=== PATIENT | male | born 1985 | race Caucasian/White ===

== ENCOUNTER 2016-08-02 22:08 | Emergency (ER) | payer SELFPAY ==
[~2016-08-02] VITALS: Ht 167.6 cm; Wt 65.8 kg
[2016-08-02 22:15] VITALS: BP 132/74
[2016-08-02] MEDS ORDERED: levETIRAcetam 500 MG in D5W 110 ML IV ONE (22:30)
[2016-08-02] MEDS ORDERED: levETIRAcetam 500mg vial IV ONE (22:56)
[2016-08-02 23:00] LABS: BASOPHILS % (AUTO) 0.8 % (0.0-2.0); EOSINOPHILS % (AUTO) 1.5 % (0.0-3.0); LYMPHOCYTES % (AUTO) 35.2 % (20.0-45.0); MEAN CORPUSCULAR HEMOGLOBIN 31.3 PG (27.0-31.0); MEAN CORPUSCULAR HGB CONC 35.4 G/DL (32.0-36.0); MEAN CORPUSCULAR VOLUME 88 FL (80-99); MEAN PLATELET VOLUME 8.4 FL (6.5-10.1); MONOCYTES % (AUTO) 7.3 % (1.0-10.0); NEUTROPHILS % (AUTO) 55.2 % (45.0-75.0); PLATELET COUNT 151 K/UL (150-450); RED BLOOD COUNT 4.69 M/UL (4.70-6.10); RED CELL DISTRIBUTION WIDTH 11.8 % (11.6-14.8); WHITE BLOOD COUNT 8.8 K/UL (4.8-10.8)
[2016-08-02 23:23] LABS: ALCOHOL < 10 mg/dL; ANION GAP 14 (5-15); CALCIUM 9.2 mg/dL (8.6-10.2); CARBON DIOXIDE 27 mEQ/L (20-30); CHLORIDE 96 mEQ/L (98-107); CREATININE 1.1 mg/dL (0.7-1.2); GLOMERULAR FILTRATION RATE > 60 mL/min (>60); HEMOLYSIS 7; POTASSIUM 3.5 mEQ/L (3.4-4.9); SODIUM 137 mEQ/L (135-145)
[2016-08-03] MEDS ORDERED: KEPPRA500 M4 ORAL (00:10)
--- NOTE | 2016-08-03 00:10 | Emergency Room Report ---
History of Present Illness General Chief Complaint: General Complaint Source: Patient, Family Member Present Illness HPI Is a 30-year-old transgender male who presents with altered mental status. Per his fianc, he became unresponsive. This lasted for 5 minutes. Afterward he has some twitching. He was confused also. No incontinence of bowel or urine. No laceration. He has similar symptom in the last 6 months but usually lasts only a few minutes. Is usually occur at night. She thought that he may have nightmares. He said that she's had a seizure but he himself never had seizure. Allergies: Coded Allergies: AMOXICILLIN (Verified Allergy, Mild, 08/02/16) Patient History Past Medical History: see triage record, old chart reviewed Past Surgical History: other Pertinent Family History: none Social History: Denies: smoking Immunizations: other Reviewed Nursing Documentation: PMH: Agreed, PSxH: Agreed Nursing Documentation-PMH Past Medical History: No History, Except For Review of Systems Eye: Denies: blurred vision, eye pain ENT: Denies: ear pain, nose congestion, throat swelling Respiratory: Denies: cough, shortness of breath Cardiovascular: Denies: chest pain, palpitations Gastrointestinal: Denies: abdominal pain, diarrhea, nausea, vomiting Musculoskeletal: Denies: back pain, joint pain Skin: Denies: rash Neurological: Denies: headache, numbness Endocrine: Denies: increased thirst, increased urine Hematologic/Lymphatic: Denies: easy bruising All Other Systems: negative except mentioned in HPI Physical Exam Vital Signs Date Time Temp Pulse Resp B/P Pulse Ox O2 Delivery O2 Flow Rate FiO2 08/02/16 22:08 97.9 89 18 138/71 100 Room Air vitals normal Sp02 EP Interpretation: reviewed, normal General Appearance: well appearing, no apparent distress, alert Head: normocephalic, atraumatic Eyes: bilateral eye EOMI, bilateral eye PERRL ENT: hearing grossly normal, normal pharynx Neck: full range of motion, supple, no meningismus Respiratory: chest non-tender, lungs clear, normal breath sounds Cardiovascular #1: regular rate, rhythm, no murmur Gastrointestinal: normal bowel sounds, non tender, no mass, no organomegaly, no bruit, non-distended Musculoskeletal: back normal, gait/station normal, normal range of motion Psychiatric: mood/affect normal Skin: warm/dry Medical Decision Making Diagnostic Impression: Primary Impression: Altered mental status, unspecified ER Course Patient with altered mental status. I suspect that he has seizure. He was somewhat postictal initially but by the end of the visit he was alert oriented x3. No evidence of drug abuse. No evidence of electrode abnormality. No evidence of mass or neoplastic process. We'll put him on Keppra. I told him that he cannot drive. He need to be cleared by a neurologist first. Explained this to family also. Lab Results Impression labs normal EKG Diagnostic Results Rate: normal Rhythm: NSR ST Segments: no acute changes Rhythm Strip Diag. Results EP Interpretation: yes Rate: 80 Rhythm: NSR, no PVC's, no ectopy CT/MRI/US Diagnostic Results CT/MRI/US Diagnostic Results : Imaging Test Ordered: CT head Impression negative per radiologist Last Vital Signs Date Time Temp Pulse Resp B/P Pulse Ox O2 Delivery O2 Flow Rate FiO2 08/02/16 22:15 97.9 74 16 132/74 100 Room Air Status: improved Disposition: HOME, SELF-CARE Condition: Stable Scripts Levetiracetam (KEPPRA) 500 Mg Tablet 500 MG ORAL EVERY 12 HOURS, #60 TAB 0 Refills Prov: MITZY BARROSO M.D. 08/03/16 Referrals: NOT CHOSEN [facility]/,REFERRING (PCP) Additional Instructions: Followup with your DrTheron in 7 days. You will need a referral to see a neurologist. You may have a seizure. You cannot drive because of possible seizure activity. You would need to be clear first in order to drive. MITZY BARROSO M.D. August 03, 2016 00:10
[2016-08-03 00:15] VITALS: BP 134/76
--- NOTE | 2016-08-04 20:03 | Cardiology Report ---
APPROVED REPORT EKG Measurement Heart [id number] NM [id number] [id number] Normal sinus rhythm Rightward axis Borderline ECG
== END 2016-08-03 00:15 | disposition home or self-care (01) ==
LOC: EDBD 22:08 → EMR 22:24
DX: R41.82 Altered mental status, unspecified (principal); Z88.1 Allergy status to other antibiotic agents
CPT/HCPCS: 36415; 70450; 80048; 80300; 85025; 93005; 96360; 96374; 99284; G0480; J1953; 80329